=== PATIENT | male | born 1965 | race Caucasian/White ===

== ENCOUNTER 2018-05-12 16:15 | Observation (INO) ==
--- NOTE | 2018-05-12 16:28 | Emergency Department Note ---
ED Disposition Clinical Impression: Chest pain, precordial Disposition: Still a Patient Condition on Discharge: Fair Referrals: Provider,Referral, [Primary Care Provider] - - Critical Care Critical Care Time: No Attestation: On , the high probability of a clinically significant, sudden or life thre atening deterioration of the following system(s) required my full and direct attention, intervention and personal management. The time I documented below is in addition to time spent performing reported procedures but includes the following listed in this critical care notation. Medical Decision Making - Chemo Inquiry Pt receiving controlled substance: Yes Chemo was queried for this patient: No Reason not queried -: Emergent pt cond-no time Risks and benefits of using a controlled substance: were not discussed with pt by me Vital Signs: 05/12/18 16:15 05/12/18 17:45 Temperature 98.1 F Temperature Source Oral Pulse Rate [Right Brachial] 76 73 Respiratory Rate 15 Blood Pressure [Right Arm] 131/77 121/80 Blood Pressure Mean [Right Arm] 95 93 Blood Pressure Source [Right Arm] Automatic Cuff Blood Pressure Position [Right Arm] Sitting 02 Sat by Pulse Oximetry 98 Oxygen Delivery Method Room Air - Lab Data Lab Results 05/12/18 16:22: WBC 11.1 H, RBC 4.63, Hgb 13.1 L, Hct 40.9 L, MCV 88.3, MCH 28.2, MCHC 32.0, RDW 14.3, Plt Count 231, MPV 7.8, Neut % (Auto) 81.7 H, Lymph % (Auto) 12.3, [place] % (Auto) 3.6, Eos % (Auto) 2.1, Baso % (Auto) 0.3, Neut # (Auto) 9.1 H, Lymph # (Auto) 1.4, [place] # (Auto) 0.4, Eos # (Auto) 0.2, Baso # (Auto) 0.0 05/12/18 16:22: Sodium 140, Potassium 4.1, Chloride 100, Carbon Dioxide 31, Ani on Gap 13.1, BUN 16, Creatinine 0.98, Estimated Creat Clear 120, Estimated GFR 81, Est GFR ( Amer) 98, Glucose 134 H, Calcium 9.1, Troponin I < 0.02 Result diagrams: 05/12/18 16:22 05/12/18 16:22 Orders (Tests/Meds): ED MEDICATIONS Discontinued Medications Generic Name Dose Route Start Last Admin Trade Name Miguel PRN Reason Stop Dose Admin Aspirin 243 mg 05/12/18 16:30 05/12/18 16:31 Aspirin 81mg Chewable Tablet PO 05/12/18 16:31 Not Given ONCE ONE Morphine Sulfate 4 mg 05/12/18 16:58 05/12/18 17:10 Morphine 4mg/Ml Syringe IV 05/12/18 16:59 4 mg ONCE ONE Administration Morphine Sulfate 4 mg 05/12/18 18:02 Morphine 4mg/Ml Syringe IV 05/12/18 18:03 ONCE ONE Nitroglycerin 1 gm 05/12/18 16:30 05/12/18 16:31 Nitroglycerin 1 Inch Oint Udp TD 05/12/18 16:31 Not Given ONCE ONE Ondansetron HCl 4 mg 05/12/18 16:58 05/12/18 17:10 Zofran 4mg/2ml Vial IV 05/12/18 16:59 4 mg ONCE ONE Administration ORDERS Category Date Time Status XR chest 2V Stat Exams 05/12/18 16:16 Taken - Radiology Data #1 Image(s): Chest Image Reviewed: Yes I reviewed the patient's radiology image Increased bronchovascular markings left retrocardiac area - ECG Data Tracing #1 EKG interpreted by Yury Garcia MD: Rhythm: sinus Rate: 69 [place]: Left Ectopy: none Conduction: Right bundle branch block ST Segment Changes: none T Wave Changes: none Q Waves: lateral PRWP LVH No prior EKGs available for comparison - Physician Consults Physician Consulted: Jen Time: 18:08 Reason -: Cardiology Eval/Care Comment/Response: Admit for serial cardiac enzymes, continue current meds Additional Consult: Shital Time: 18:17 Reason -: Admission Comment/Response: Agrees to admit the patient to the hospital. We discussed the patient's clinical information, including history, exam, laboratory and radiology results and ED course. Per hospital procedure, I will write temporary bridge inpatient orders on the patient. 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 by RN): chest pain that began while he was setting at family's house watching tv (a david show); denies any agitation or anxiety. states he began experiencing pain in left arm, nausea, vomited x 3, and no relief from pain after nitro x 3. history of having 20 stents placed, 4 heart attacks, and a quadruple bypass int he past. receives his care from his home employment representative [place] of [place]. - History of Present Illness HPI narrative: Left parasternal and left precordial chest pain radiating into his left arm with nausea and vomiting that started 30 minutes prior to arrival. Denies shortness of breath or diaphoresis. Took 3 nitroglycerin, pain went from 10/10 to 8/10. He says that his current pain is the same as previous heart pain. He says he cannot get any more nitroglycerin after taking 3 sublingual because it bottoms out his blood pressure. He is from [place], visiting here since and leaving on Friday. He has an extensive cardiac history. Last event was 2-3 years ago at which time he had a couple of stents put in. No stress tests or angiogram since then. States he usually gets chest pain infrequently, only about every 6 months or so. - Related Data Home Medications Medication Instructions Recorded Confirmed Aspirin [Aspirin 81mg EC Tab] 81 mg PO DAILY 05/12/18 05/12/18 Atorvastatin Calcium [Lipitor 80mg 80 mg PO DAILY 05/12/18 05/12/18 Tablet] Clopidogrel Bisulfate [Plavix 75mg 75 mg PO DAILY 05/12/18 05/12/18 Tab] Ferrous Sulfate [Ferrous Sulfate 325 mg PO DAILY 05/12/18 05/12/18 325mg Tablet] LORazepam [Ativan 1mg tablet] 1 mg PO QID 05/12/18 05/12/18 Metoprolol Succinate 50 mg PO DAILY 05/12/18 05/12/18 Nitroglycerin [Nitrostat 0.4mg SL 0 mg SL DAILY 05/12/18 05/12/18 Tablet] Ranolazine [Ranexa] 1,000 mg PO ONCE 05/12/18 05/12/18 Tamsulosin HCl [Flomax 0.4mg 0.4 mg PO HS 05/12/18 05/12/18 capsule] Trazodone HCl 100 mg PO DAILY 05/12/18 05/12/18 hydrOXYzine HCl [Hydroxyzine HCl] 50 mg PO DAILY 05/12/18 05/12/18 Allergies Allergy/AdvReac Type Severity Reaction Status Date / Time venlafaxine [From Effexor] Allergy Verified 05/12/18 16:29 iv dye Allergy Uncoded 05/12/18 16:29 [facility] History - Hepatitis A Screen Drug use history?: No High risk sexual behaviors?: No History of sexually transmitted infection?: No Currently employed?: No Childcare worker?: No Do you have indoor plumbing?: Yes Do you have electricity?: Yes Attestation statement:: This patient has been screened for Hepatitis A risk factors. I have reviewed the patient's past medical history: Yes - Social History Alcohol Intake: never - Psychiatric History Expresses thoughts of harming self/others: None Suicide Plan Description: No Plan ROS Obtained: Yes All systems reviewed & no additional complaints - Constitutional Constitutional: Denies fever(s) - Cardiovascular Cardiovascular: Reports chest pain - Respiratory Respiratory: No dyspnea - Gastrointestinal Gastrointestingal: Reports: nausea, vomiting. Denies: abdominal pain - Neurologic Neurologic: Reports headache(s) (From nitroglycerin) Physical Exam - General General appearance: alert, in no apparent distress - Head Head exam: atraumatic, normocephalic - Eye Eye exam: Present: normal appearance, PERRL, EOMI - ENT ENT exam: Present: mucous membranes moist - Neck Neck exam: Present: normal inspection, trachea midline - Chest Chest inspection: Present: normal inspection, symmetric chest wall rise, other (Sternotomy scar) - Respiratory Respiratory exam: Present: normal lung sounds bilaterally. Absent: respiratory distress - Cardiovascular Cardiovascular exam: Present: regular rate, normal rhythm, normal heart sounds - Abdominal Exam Abdominal exam: Present: soft. Absent: distention, tenderness, guarding - Extremities Exam Extremities exam: Present: normal inspection. Absent: calf tenderness - Neurological Exam Neurological exam: Present: alert, oriented X3 - Psychiatric Psychiatric exam: Present: normal affect, normal mood - Skin Skin exam: Present: warm, dry
[2018-05-12 16:36] LABS: Basophils % 0.3 % (0.1-2.0); Eosinophils # 0.2 K/mm3 (0.0-0.4); Eosinophils % 2.1 % (0.1-12.0); Hematocrit 40.9 % (42.0-52.0); Hemoglobin 13.1 g/dL (14.1-18.0); Lymphocytes # 1.4 K/mm3 (0.7-4.5); Lymphocytes % 12.3 % (10-50); Mean Corpuscular Hemoglobin 28.2 pg (27.0-31.2); Mean Corpuscular Volume 88.3 fl (80-94); Mean Platelet Volume 7.8 fl (7.4-10.4); Monocytes # 0.4 K/mm3 (0.1-1.0); Monocytes % 3.6 % (1.7-9.3); Neutrophils # 9.1 K/mm3 (1.8-7.8); Neutrophils % 81.7 % (37.0-80.0); Platelet Count 231 K/mm3 (142-424); Red Blood Count 4.63 M/mm3 (4.60-6.20); Red Cell Distribution Width 14.3 % (11.5-17.5); White Blood Count 11.1 K/mm3 (4.8-10.8)
[2018-05-12 16:49] LABS: Anion Gap 13.1 mEq/L (5-15); Blood Urea Nitrogen 16 mg/dL (7-18); Calcium 9.1 mg/dL (8.5-10.1); Carbon Dioxide 31 mmol/L (21.0-32.0); Chloride 100 mmol/L (98-107); Glucose 134 mg/dL (74-106); Potassium 4.1 mmoL/L (3.5-5.1); Sodium 140 mmol/L (136-145)
--- NOTE | 2018-05-13 07:47 | H&P/Discharge Summary ---
General - General Admission date:: 05/12/18 Discharge date: 05/13/18 *Admission Date: 05/13/18 *Chief complaint: Chest pain *History of present illness: Patient is quite agitated this morning. He does not answer questions. Information is obtained from medical record and who is present in his room. Patient described left parasternal and left precordial chest pain radiating into his left arm with nausea and vomiting that started 30 minutes prior to arrival while watching [place] show on the television. He denied shortness of breath or diaphoresis. He took 3 nitroglycerin and pain went from 10/10 to 8/10. He described his current pain as the same as previous heart pain. He stated that he could not take any more nitroglycerin after taking 3 sublingual because it bottoms out his blood pressure. He is from [place] and has been visiting here since and plans to leave on Friday. He has an extensive cardiac history with 20 stents placed, 4 heart attacks, and a quadruple bypass. Last event was 2-3 years ago at which time he had a couple of stents put in. No stress tests or angiogram since then. States he usually gets chest pain infrequently, only about every 6 months or so. At present time patient denies chest pain and shortness of breath. He states he is leaving now. As we talk and I am listening to his heart he is dressing, putting on his shoes and pulling the monitor off. His states that there was a drive straight through to [place] where he was see his own physician. Nurse was to have patient sign AMA papers. [facility] History Medical History: Reports:: Coronary Artery Disease, Hyperlipidemia, Hypertension, Myocardial Infarction Other Surgeries: Yes: Angioplasty, CABG, Cardiac Catheterization, Coronary Stent - *Social History Educational Level: Completed Grade School Smoking Status: Former smoker Tobacco Type: cigarettes # Packs/Day (cigarettes): 4 #Yrs smoked (if former smoker): 25 Alcohol Intake: never Occupational Status: disabled Household Members: spouse - Psychiatric History Expresses thoughts of harming self/others: None Suicide Plan Description: No Plan *Family Hx:: Coronary Artery Disease, Heart Attack, Hyperlipidemia, Hypertension Review of Systems - Review of Systems Review of systems:: other (Very limited. Information obtained mostly from his .) - *Cardiovascular Reports chest pain, Denies shortness of breath - *Respiratory Denies chest congestion, Denies shortness of breath - *Gastrointestinal Reports nausea, Reports vomiting - *Genitourinary Denies difficulty urinating - *Musculoskeletal Denies abnormal walking - *Neurologic Reports headache(s) (From nitroglycerin) - Psychiatric Reports anxiety Comments: Agitation. His stated that when he gets this way there is no reasoning with him. Exam Vital signs and Labs for Last 24 Hours: Temp Pulse Resp BP Pulse Ox 98.8 F 62 20 112/68 97 05/13/18 00:00 05/13/18 04:00 05/13/18 04:00 05/13/18 04:00 05/13/18 04:00 Laboratory Results - last 24 hr 05/12/18 16:22: WBC 11.1 H, RBC 4.63, Hgb 13.1 L, Hct 40.9 L, MCV 88.3, MCH 28.2, MCHC 32.0, RDW 14.3, Plt Count 231, MPV 7.8, Neut % (Auto) 81.7 H, Lymph % (Auto) 12.3, [place] % (Auto) 3.6, Eos % (Auto) 2.1, Baso % (Auto) 0.3, Neut # (Auto) 9.1 H, Lymph # (Auto) 1.4, [place] # (Auto) 0.4, Eos # (Auto) 0.2, Baso # (Auto) 0.0 05/12/18 16:22: Sodium 140, Potassium 4.1, Chloride 100, Carbon Dioxide 31, Anion Gap 13.1, BUN 16, Creatinine 0.98, Estimated Creat Clear 120, Estimated GFR 81, Est GFR ( Amer) 98, Glucose 134 H, Calcium 9.1, Troponin I < 0.02 05/12/18 22:20: Troponin I < 0.02 05/13/18 00:45: Troponin I < 0.02 I & O for Last 24 hours: Intake & Output 05/10/18 05/11/18 05/12/18 05/13/18 11:59 11:59 11:59 11:59 Intake Total 960 / 960 Balance 960 / 960 Weight 199 lb 5 oz - Constitutional agitated Comments: Due to patient's agitation I was only able to listen to his heart and lungs. - *Routine Respiratory Exam Present: CTA bilaterally (Anteriorly and posteriorly) - *Routine Cardiovascular Exam Present: RRR - *Routine Neurological Exam Present: alert, oriented X3 - Routine Psychiatric Exam Present: agitated Hospital Course Hospital Course: After admission patient states he had no further chest pain and he was not short of breath. He states that he did sleep some. He has ambulated without difficulty. He is voiding without problems. He has decided to leave [place]. Troponin I's have been normal x3. Patient signed out AMA with plans to return to [place] him to see his physician there. His stated they would drive directly home Results Completed studies during hospitalization [Text1]: 05/12/2018 chest x-ray IMPRESSION Increased markings at the left lower lobe retrocardiac region. Suspect airspace disease/infiltrate here. Correlation required Labs on day of discharge: Labs from last 24 hours 05/13/18 05/12/18 05/12/18 00:45 22:20 16:22 WBC RBC Hgb Hct MCV MCH MCHC RDW Plt Count MPV Neut % (Auto) Lymph % (Auto) [place] % (Auto) Eos % (Auto) Baso % (Auto) Neut # (Auto) Lymph # (Auto) [place] # (Auto) Eos # (Auto) Baso # (Auto) Sodium 140 Potassium 4.1 Chloride 100 Carbon Dioxide 31 Anion Gap 13.1 BUN 16 Creatinine 0.98 Estimated Creat Clear 120 Estimated GFR 81 Est GFR ( Amer) 98 Glucose 134 H Calcium 9.1 Troponin I < 0.02 < 0.02 < 0.02 05/12/18 16:22 WBC 11.1 H RBC 4.63 Hgb 13.1 L Hct 40.9 L MCV 88.3 MCH 28.2 MCHC 32.0 RDW 14.3 Plt Count 231 MPV 7.8 Neut % (Auto) 81.7 H Lymph % (Auto) 12.3 [place] % (Auto) 3.6 Eos % (Auto) 2.1 Baso % (Auto) 0.3 Neut # (Auto) 9.1 H Lymph # (Auto) 1.4 [place] # (Auto) 0.4 Eos # (Auto) 0.2 Baso # (Auto) 0.0 Sodium Potassium Chloride Carbon Dioxide Anion Gap BUN Creatinine Estimated Creat Clear Estimated GFR Est GFR ( Amer) Glucose Calcium Troponin I DS: Diagnosis - Discharge Diagnosis (1) Chest pain, precordial Status: Acute (2) Hyperlipidemia Status: Chronic (3) Coronary artery disease Status: Chronic (4) Agitation Status: Acute Discharge Medications - Medications for Discharge Home Medication List at Discharge: No Action Aspirin [Aspirin 81mg EC Tab] 81 mg PO DAILY Nitroglycerin [Nitrostat 0.4mg SL Tablet] 0 mg SL DAILY Tamsulosin HCl [Flomax 0.4mg capsule] 0.4 mg PO HS Ferrous Sulfate [Ferrous Sulfate 325mg Tablet] 325 mg PO DAILY Clopidogrel Bisulfate [Plavix 75mg Tab] 75 mg PO DAILY Trazodone HCl 100 mg PO DAILY Ranolazine [Ranexa] 1,000 mg PO ONCE Metoprolol Succinate 50 mg PO DAILY LORazepam [Ativan 1mg tablet] 1 mg PO QID hydrOXYzine HCl [Hydroxyzine HCl] 50 mg PO DAILY Atorvastatin Calcium [Lipitor 80mg Tablet] 80 mg PO DAILY Disposition Disposition: Left Against Medical Advice
== END 2018-05-13 07:40 | disposition left against medical advice (07) ==
LOC: 2ND 16:15 → ER 16:15 → 2ND 18:58
PROVIDERS: ADMIT Family Medicine; ATTEND Family Medicine
CPT/HCPCS: 36415; 71020; 71046; 80048; 84484; 85025; 93005; 96374; 96375; 99284; G0378; J2405